=== PATIENT | male | born 1950 | race Caucasian/White ===

== ENCOUNTER 2017-08-31 17:40 | Outpatient (CLI) | payer MEDICARE, OTHER ==
[2017-08-31 20:14] LABS: BASOPHILS # (AUTO) 0.1 X10'3 (0-0.2); BASOPHILS % (AUTO) 0.5 % (0-1); EOSINOPHILS # (AUTO) 0.3 X10'3 (0-0.9); EOSINOPHILS % (AUTO) 3.1 % (0-6); HEMATOCRIT 41.4 % (42.0-52.0); LYMPHOCYTES # (AUTO) 2.6 X10'3 (1.1-4.8); LYMPHOCYTES % (AUTO) 25.9 % (21-51); MEAN CORPUSCULAR HEMOGLOBIN 30.9 PG (27.0-31.0); MEAN CORPUSCULAR HGB CONC 33.8 % (33.0-36.5); MEAN CORPUSCULAR VOLUME 91.3 FL (78-98); MEAN PLATELET VOLUME 6.9 FL (7.4-10.4); MONOCYTES # (AUTO) 0.9 X10'3 (0-0.9); NEUTROPHILS # (AUTO) 6.1 X10'3 (1.8-7.7); NEUTROPHILS % (AUTO) 61.5 % (42-75); PLATELET COUNT 377 X10'3 (140-440); RED BLOOD COUNT 4.53 X10'6 (4.70-6.10); WHITE BLOOD COUNT 9.9 X10'3 (4.5-11.0)
[2017-08-31 20:21] LABS: ALANINE AMINOTRANSFERASE 34 U/L (12-78); ALBUMIN 3.8 G/DL (3.4-5.0); ALBUMIN/GLOBULIN RATIO 1.2 (1.1-1.5); ALKALINE PHOSPHATASE 89 IU/L (46-116); ANION GAP 7 (8-16); ASPARTATE AMINO TRANSFERASE 20 U/L (10-37); BILIRUBIN,TOTAL 0.2 MG/DL (0.1-1.0); BLOOD UREA NITROGEN 11 MG/DL (7-18); BUN/CREATININE RATIO 12.8 (5.4-32.0); C-REACTIVE PROTEIN 0.33 MG/DL (0.0-0.5); CALCIUM 9.8 MG/DL (8.5-10.1); CHLORIDE 102 MMOL/L (99-107); CREATININE 0.86 MG/DL (0.60-1.10); GLUCOSE 76 MG/DL (70-104); POTASSIUM 4.7 MMOL/L (3.5-5.1); SODIUM 138 MMOL/L (135-145); TOTAL CARBON DIOXIDE 28.8 MMOL/L (24-32); eGFR 89 ML/MIN
== END 2017-08-31 23:59 | disposition home or self-care (01) ==
LOC: LAB SPEC 17:40
PROVIDERS: ATTEND Internal Medicine
DX: M86.9 Osteomyelitis, unspecified (principal)
CPT/HCPCS: 36415; 80053; 85025; 85651; 86140

== ENCOUNTER 2023-02-19 09:02 | Outpatient (CLI) | payer BC ==
[~2023-02-19] VITALS: Ht 177.8 cm; Wt 125.0 kg
[2023-02-19] VITALS (7 sets, daily range): BP systolic 123–151; BP diastolic 64–98; PULSE 84–102; RESP 18; O2SAT 95
[2023-02-19] MEDS ORDERED: normal saline 500ml IV soln 500 ML IV ONE (10:10)
[2023-02-19] MEDS ORDERED: nitroGLYCERIN 0.4mg SUBLingual tab SL PRN (10:10)
[2023-02-19] MEDS ORDERED: regadenoson 0.4mg/5ml syringe IV ONE (10:10)
[2023-02-19] MEDS ORDERED: aminophylline 250mg/10ml inj. IV PRN (10:10)
== END 2023-02-19 23:59 | disposition home or self-care (01) ==
LOC: RAD 09:02
PROVIDERS: ATTEND Internal Medicine Interventional Cardiology
DX: R94.31 Abnormal electrocardiogram [ECG] [EKG] (principal)
CPT/HCPCS: 78452; 93017; A9500; J2785; J7040